=== PATIENT | male | born 1935 | race Caucasian/White ===

== ENCOUNTER → 2019-12-29 14:16 | Outpatient (CLI) | payer MEDICARE, OTHER, SELFPAY ==
--- NOTE | 2019-12-29 | DI.RAD.S_ITS ---
PROCEDURE: XR CHEST 2V INDICATIONS: COUGH TECHNIQUE: 2 views of the chest were acquired. COMPARISON: None. FINDINGS: Surgical changes and devices: Cardiac pacemaking device and dual chamber leads normal Lungs and pleura: Lungs are clear. No pleural effusions or pneumothorax. Mediastinum: Mediastinal contours are normal. Heart size is normal. Bones and chest wall: No suspicious bony abnormalities. Soft tissues appear unremarkable. IMPRESSION: Pacemaker in place, dual-chamber leads normal. No source of cough is found. Dictated by: Russel Mendes M.D. on 12/29/2019 at 15:08 Approved by: Russel Mendes M.D. on 12/29/2019 at 15:09
== END ==
PROVIDERS: PCP Internal Medicine; Referring Provider Internal Medicine; Visit Provider Internal Medicine
DX: R05 Cough (principal); Z95.0 Presence of cardiac pacemaker
CPT/HCPCS: 71046

== ENCOUNTER 2020-06-14 10:54 | Outpatient (RCR) | payer MEDICARE, OTHER, SELFPAY ==
--- NOTE | 2020-06-14 13:59 | PT.OIE ---
Current Diagnoses Impacted cerumen, left ear (06/14/20) Other abnormal auditory perceptions, right ear (06/14/20) Dizziness and giddiness (06/14/20) Visit Care Team Role Provider Type Mejia Mejía MD Primary Care Provider Non-Staff Specialty: Internal Medicine Address: [address] [place], [address] Email: Dedrick Fernandez MD Attending Provider Physician Referring Provider Specialty: Ear, Nose, Throat Address: [address] [place] [address], [address] Email: [email or web address] Physical Therapy Initial Evaluation PT-OP-A Visit Information Start: 06/14/20 13:47 Freq: Status: Active Protocol: Document 06/14/20 11:15 DCW (Rec: 06/14/20 13:58 DCW [id number]) Out-Patient Physical Therapy Visit Information Visit Information Visit Type Initial Evaluation Visit Start Time 11:15 Visit Stop Time 11:50 Total Visit Minutes 35 Visit Number 1 Number of PHYSICIAN SPECIALIST Visits 0 Evaluation Information Evaluation Date 06/14/20 PT-OP-B Current Condition Start: 06/14/20 13:47 Freq: Status: Active Protocol: Document 06/14/20 11:15 DCW (Rec: 06/14/20 13:58 DCW [id number]) Current Condition History of Current Condition Onset Date ~1 year Current Complaints Imbalance History of Current Condition Pt is an 84 year old male with a one year history of imbalance. Pt has noticed some increased difficulty when stepping from the dock onto his small fishing boat. Pt overall feels he is doing well , and just happened to mention to his ENT that he noticed some decreased balance, so he was referred to skilled PT for a vestibular/balance assessment. PT-OP-C Subjective Start: 06/14/20 13:47 Freq: Status: Active Protocol: Document 06/14/20 11:15 DCW (Rec: 06/14/20 13:58 DCW [id number]) OP-PT Subjective Patient Comments Patient Comments I think I'm doing pretty well overall. Patient Questionnaires Dizziness Handicap Inventory DHI Score 18% DHI Functional Impairment 1 to 19% Impaired (Score 1-19) PT-OP-D Balance Start: 06/14/20 13:47 Freq: Status: Active Protocol: Document 06/14/20 11:15 DCW (Rec: 06/14/20 13:58 DCW [id number]) OP-PT Balance Assessment Sitting Balance Static Sitting Balance Ability Normal Dynamic Sitting Balance Ability Normal Standing Balance Static Standing Balance Ability Normal Dynamic Standing Balance Ability Normal Balance Tests Rincon Balance Test Rincon Balance Test Score 50/56 Rincon Impairment Rating 1 to 19% Impaired (Score 45-55 ) Rincon Balance Assessment Evaluation Sitting to Standing Ability Independent w/out Hands Unsupported Stance Safely- 2 minutes Sitting Unsupported, Feet on Floor Safely- 2 minutes Standing to Sitting Ability Safely, Minimal Hand Use Transfer Ability Safely, Minimal Hand Use Unsupported Stance- Eyes Closed Safely, 10 seconds Unsupported Stance- Eyes Open Independent, 1 minute Reaching Forward Standing Safely, 5 inches Pick- Up Object From Floor Independent/Safe Look Behind Shoulder - Standing Turns Sideways Only Turning 360 Degrees Turns Bilateral, < 4 secs Unsupported Stance, Alternating Feet on (I)- 8 Steps in 20 secs Stair Unsupported Tandem Stance Holds Tandem- 30 seconds Unilateral Leg Stance Lifts Leg/Holds > 3 secs Total Score Rincon Total Score (out of 56 points) 50 Rincon Impairment Rating 1 to 19% Impaired (Score 45-55 ) Wolf Fall Scale Copyright Permission PT-OP-E Functional Tests Start: 06/14/20 13:47 Freq: Status: Active Protocol: Document 06/14/20 11:15 DCW (Rec: 06/14/20 13:58 DCW [id number]) Functional Tests Dynamic Gait Index (DGI) Score 2324 Functional Gait Assessment Score 27/30 PT-OP-M Strength Start: 06/14/20 13:58 Freq: Status: Active Protocol: Document 06/14/20 11:15 DCW (Rec: 06/14/20 13:59 DCW [id number]) Hip Strength Hip Manual Muscle Testing Bilateral Flexion (L2) 4+ Good+ Abduction 5 Normal Adduction 4+ Good+ Knee Strength Knee Manual Muscle Testing Bilateral Flexion (S2) 4+ Good+ Extension (L3) 4+ Good+ Ankle/Foot Strength Ankle and Foot Manual Muscle Testing Bilateral Dorsiflexion (L4) 4+ Good+ Plantarflexion (S1) 4+ Good+ PT-OP-O Vestibular Start: 06/14/20 13:47 Freq: Status: Active Protocol: Document 06/14/20 11:15 DCW (Rec: 06/14/20 13:58 [facility] [id number]) Vestibular Assessment Screening Tests Vestibular Artery Screen Negative Sharp-Kirstin Test Negative Visual Testing Heave Test Positive Bilateral Thrust Head Positive Bilateral PT-OP-T Assessment and Plan Start: 06/14/20 13:47 Freq: Status: Active Protocol: Document 06/14/20 11:15 DCW (Rec: 06/14/20 13:58 [facility] [id number]) Physical Therapy Assessment Evaluation Complexity Number of Personal Factors/Comorbidities 0 Number of Body Systems Impaired 1-2 Clinical Presentation at Evaluation Stable Assessment Summary Assessment Pt doing very well overall. Scores of 50/56 on his Rincon, 23/24 on the DGI, and 27/30 on the FGA are all suggestive of a low falls risk. Pt's FGA, in particular, is 6 points higher than the average score of 20.7 for his age group. 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 Pt leg strength also very good at this time. Pt does not have any real evidence of areas of concern, and would likely not benefit from continued skilled therapy. Pt will be discharged at this time. Physical Therapy Plan Frequency and Duration Frequency of Treatment 1x/Week Duration of Treatment 1 day Plan of Care Start Date 06/14/20 Plan of Care End Date 06/15/20 Next Visit Focus/Plan Next Note Type Discharge Summary
--- NOTE | 2020-06-14 14:00 | PT.OPPOC ---
Physical, Occupational & Speech Therapy At [facility] Current Diagnoses Impacted cerumen, left ear (06/14/20) Other abnormal auditory perceptions, right ear (06/14/20) Dizziness and giddiness (06/14/20) Visit Care Team Role Provider Type Mejia Mejía MD Primary Care Provider Non-Staff Specialty: Internal Medicine Address: [address] [place], [address] Email: Dedrick Fernandez MD Attending Provider Physician Referring Provider Specialty: Ear, Nose, Throat Address: [address] [place] [address], [address] Email: [email or web address] Plan Of Care PT-OP-T Assessment and Plan Start: 06/14/20 13:47 Freq: Status: Active Protocol: Document 06/14/20 11:15 DCW (Rec: 06/14/20 13:58 DCW [id number]) Physical Therapy Assessment Evaluation Complexity Number of Personal Factors/Comorbidities 0 Number of Body Systems Impaired 1-2 Clinical Presentation at Evaluation Stable Assessment Summary Assessment Pt doing very well overall. Scores of 50/56 on his Rincon, 23/24 on the DGI, and 27/30 on the FGA are all suggestive of a low falls risk. Pt's FGA, in particular, is 6 points higher than the average score of 20.7 for his age group. 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 Pt leg strength also very good at this time. Pt does not have any real evidence of areas of concern, and would likely not benefit from continued skilled therapy. Pt will be discharged at this time. Physical Therapy Plan Frequency and Duration Frequency of Treatment 1x/Week Duration of Treatment 1 day Plan of Care Start Date 06/14/20 Plan of Care End Date 06/15/20 Next Visit Focus/Plan Next Note Type Discharge Summary Plan of Care Dates Plan of Care Start Date 06/14/20 Plan of Care End Date 06/15/20 Electronically Signed by: Juan Carlos Isaacs, PT 06/14/20 1400 Please Sign and Return: I have reviewed this Plan of Care and certify that the skilled therapy services above are required to meet the patient?s needs. Physician Signature Date Printed Name and Credentials Clinical Instructor Signature Printed Name and Credentials
== END 2020-06-30 14:37 | disposition home or self-care (01) ==
LOC: PHYS 10:54
PROVIDERS: PCP Internal Medicine; Referring Provider Otolaryngology; Visit Provider Otolaryngology
DX: H93.291 Other abnormal auditory perceptions, right ear (principal); H61.22 Impacted cerumen, left ear; R42 Dizziness and giddiness
CPT/HCPCS: 97161

== ENCOUNTER → 2020-09-18 10:25 | Outpatient (CLI) | payer MEDICARE, OTHER, SELFPAY ==
[2020-09-18 11:21] LABS: COVID19 -Nasal RAPID Negative (Negative)
== END ==
PROVIDERS: PCP Internal Medicine; Visit Provider Physician Assistant
DX: Z01.812 Encounter for preprocedural laboratory examination (principal); Z20.822 Contact with and (suspected) exposure to COVID-19
CPT/HCPCS: 87635; C9803

== ENCOUNTER 2020-09-20 11:52 | Day surgery (SDC) | payer MEDICARE, OTHER, SELFPAY ==
[2020-09-20] VITALS (8 sets, daily range): BP systolic 110–147; BP diastolic 67–88; PULSE 54–77; RESP 11–16; TEMP 36.3–36.8; O2SAT 93–98; BMI 25.8
--- NOTE | 2020-09-20 | PATH_ITS ---
[facility] Accession Number: [id number] . 01 Material submitted: . colon - DESCENDING COLON POLYP . 02 Diagnosis: Descending Colon Polyp: Tubular adenoma. MRV 09/26/2020 1316 Local . 02 Electronically signed: . Brynn Singh MD, Pathologist NPI- [id number] . 01 Gross description: . DESCENDING COLON POLYP: Received in formalin is 1 fragment(s) of streeter, soft tissue measuring 0.3 x 0.2 x 0.2 cm submitted entirely in 1 cassette(s) /MARILUZ 09/21/2020 1920 Local . 02 Pathologist provided ICD-10: R10.33, K62.5, K63.5, K59.01 . 02 CPT . 617703 Performed at: 01 [facility] [address] [id number] MD Johnie Brannon MD Phone: [phone] Performed at: 02 [facility] [place] [address] [place], [place] [id number] MD Angie Maldonado MD Phone: [phone]
--- NOTE | 2020-09-20 11:08 | PM.HP.1 ---
History of Present Illness History of Present Illness Date Patient Seen: 09/20/20 Chief complaint: DX COLONOSCOPY Narrative: 84-year-old male seen at our office on 08/02/2020 due to constipation, abdominal pain, and rectal bleeding who is here for further evaluation by means of colonoscopy Patient History Medical History (Updated 09/11/20 @ 10:03 by Ahmet Gomez MD) Arthritis GERD (gastroesophageal reflux disease) History of malignant neoplasm of prostate History of migraine headaches Hypertension Lower urinary tract symptoms (LUTS) Pacemaker Prostate cancer Surgical History History of hernia repair History of prostate biopsy History of prostatectomy History of transurethral resection of prostate Status post implantation of artificial urinary sphincter Meds Home Medications and Allergies Home Medications Medication Instructions Recorded Confirmed Type amlodipine 5 mg tablet 5 mg PO DAILY 09/08/20 History butterbur root extract 75 mg mg PO 09/08/20 History capsule losartan 50 mg tablet 50 mg PO DAILY 09/08/20 History omeprazole 20 mg capsule,delayed 20 mg PO DAILY 09/08/20 History release pravastatin 40 mg tablet 40 mg PO DAILY 09/08/20 History propranolol 80 mg capsule,24 80 mg PO DAILY 09/08/20 History hr,extended release topiramate 25 mg tablet 25 mg PO DAILY 09/08/20 History zolmitriptan 5 mg tablet See Rx Instructions PO .COMPLEX 09/08/20 History Allergies Allergy/AdvReac Type Severity Reaction Status Date / Time codeine Allergy Verified 09/20/20 12:15 Exam Narrative Exam Narrative: General: Patient is well developed, not in apparent distress Cardiovascular: Regular rate and rhythm, no murmurs, rubs, or gallops; no evidence of edema; no palpable abdominal aortic aneurysm Gastrointestinal: Normoactive bowel sounds, soft, nontender, nondistended, no rebound tenderness, no hepatosplenomegaly, no evidence of hernia Assessment & Plan Assessment & Plan narrative: 84-year-old male here for further evaluation of constipation, rectal bleeding, and abdominal pain findings of colonoscopy Regarding the procedure(s), the risks and potential complications, benefits, and alternatives (including not doing the procedure) were discussed with the patient. The risks include but are not limited to bleeding, splenic injury, infection, perforation which may require surgical intervention, missed lesions, and adverse reactions to sedative medicines. After a question and answer period, the patient agreed to proceed with the procedure(s) and gives informed consent.
[2020-09-20] MEDS: SODIUM CHLORIDE 0.9% 1,000 ML 70 ML IV (12:51)
--- NOTE | 2020-09-20 12:56 | PM.OP.ENDO ---
Operative Date/Time/Diagnoses Date of procedure: 09/20/20 Procedure Notes Procedure in detail: Surgeon: Oleg Marcos MD Procedure: Colonoscopy with polypectomy Preoperative diagnosis: Constipation and rectal bleeding Postoperative diagnosis: Descending colon polyp status post polypectomy, severe diverticulosis descending and sigmoid colon with resultant decreased luminal diameter and mobility in the sigmoid colon; grade 1 internal hemorrhoids Medications: Conscious sedation using 5 mg IV of Midazolam and 100 mcg IV of Fentanyl Preanesthesia Assessment An H and P was performed/updated and the Px?s ASA class is 2. The procedure was discussed in detail with the patient. The potential risks and complications including infection, bleeding, missed lesions, perforation, need for surgery in case of perforation, prolonged hospital stay, and were explained. A brief question and answer period was allotted and once all questions were answered, informed consent was obtained. The patient was brought back to the procedure room and placed on standard monitoring. The patient?s vital signs were monitored continuously throughout the entire procedure. Prior to starting, a timeout was performed to confirm the patient?s identity, allergies, medications, and procedure. Procedure in detail The patient was placed in left lateral decubitus position and once adequate sedation was obtained a ROSEANNA was performed. The digital rectal examination did not reveal any palpable lesions. The tip of the colonoscope was placed in the anal canal and advanced without difficulty all the way to the cecum which was identified by the appendiceal orifice and the ileocecal valve. Careful examination of all pfeiffer of the colon was performed with irrigation of any residual stool. In the descending colon, there was note of a 2 mm sessile polyp which was removed by means of cold Jumbo forceps. Resection retrieval was complete with minimal bleeding In the descending colon and sigmoid colon there was note of multiple medium-sized diverticula. Due to the severe diverticulosis there were areas of the sigmoid colon that appeared to be fixed and decreased in luminal diameter. Retroflexion performed in the rectum revealed grade 1 internal hemorrhoids The patient tolerated the procedure well and will be brought back to the recovery area to be discharged once criteria are met. The prep was judged to be good and adequate to identify polyps less than 5 mm. The withdrawal time was 10 minutes. The total physician intraservice time was 17 minutes. Complications There were no complications and estimated blood loss was minimal. Recommendations: High-fiber diet Continue outPx medications Follow up pathology results No further surveillance colonoscopy recommended given patient's age Follow-up at our office ([facility]) with Dr. Lopez. Please call our office if you do not hear back from a washing machine installer in the next 1 week An emergency contact number was given to the patient for any complications related to the procedure
[2020-09-20] MEDS: MIDAZOLAM 5 MG/5 ML VIAL IV (13:07)
[2020-09-20] MEDS: fentaNYL 250 MCG/5 ML INJ IV (13:12)
--- NOTE | 2020-09-20 14:38 | SUR.PHASEII ---
Pt now ready to go, called, pt dressed, belly remained soft, no nausea, pt left in stable condition. informed of d/c instructions at car.
== END 2020-09-20 14:39 | disposition home or self-care (01) ==
PROVIDERS: PCP Internal Medicine; Referring Provider Internal Medicine; Visit Provider Internal Medicine Gastroenterology
PROC: 0DJD8ZZ Inspection of Lower Intestinal Tract, Via Natural or Artificial Opening Endoscopic (ICD-10-PCS; CPT 45378; principal; 2020-09-20 13:00)
DX: K62.5 Hemorrhage of anus and rectum (principal); K59.01 Slow transit constipation; Z95.0 Presence of cardiac pacemaker; I10 Essential (primary) hypertension; K21.9 Gastro-esophageal reflux disease without esophagitis; K57.30 Diverticulosis of large intestine without perforation or abscess without bleeding; K64.0 First degree hemorrhoids; D12.4 Benign neoplasm of descending colon
CPT/HCPCS: 45380; J2250; J3010

== ENCOUNTER → 2020-11-16 14:26 | Outpatient (CLI) | payer MEDICARE, OTHER, SELFPAY ==
[2020-11-16 16:34] LABS: BUN Creatinine Ratio 15.7 (6-22); Blood Urea Nitrogen 18 mg/dL (9-20); Calcium 9.5 mg/dL (8.4-10.2); Carbon Dioxide 23 mmol/L (22-32); Chloride 109 mmol/L (98-107); Estimated Glomerular Filt Rate > 60.0 mL/min (>60); Glucose 90 mg/dL (80-110); HEMOLYSIS < 15 (0-50); Potassium 4.5 mmol/L (3.4-5.1); Sodium 142 mmol/L (137-145)
== END ==
PROVIDERS: PCP Internal Medicine; Referring Provider Specialist; Visit Provider Specialist
DX: C61 Malignant neoplasm of prostate (principal)
CPT/HCPCS: 36415; 80048

== ENCOUNTER → 2020-11-24 12:29 | Outpatient (CLI) | payer MEDICARE, OTHER, SELFPAY ==
--- NOTE | 2020-11-24 12:31 | DI.NM.S_ITS ---
PROCEDURE: NM BONE SCAN WHOLE BODY RADIOPHARMACEUTICAL: 20.4 mCi Tc-99m MDP IV. INDICATIONS: prostate cancer TECHNIQUE: Delayed whole-body scintigrams were obtained approximately 3-4 hours after intravenous injection of radiotracer. Anterior and posterior views were acquired from vertex to feet. Additional oblique views of the pelvis were obtained. COMPARISON: [facility], CT, CT CHEST ABD PEL W CON, 11/24/2020, 13:19. [facility], MR, MR LUMBAR SPINE WITHOUT CONTRAST, 11/06/2020, 13:21. FINDINGS: No lesions are identified in skull, sternum, clavicles, scapulae, ribs, bony pelvis, and visualized shafts of the long bones. There is low level increased uptake in cervical, thoracic and lumbar spine with distribution indistinguishable from degenerative disc and facet disease; early metastasis to spine could be obscured by degenerative changes. There are foci of increased periarticular activity involving shoulders, sternoclavicular joints, hands, hips, SI joints, knees, ankles and feet, compatible with degenerative/arthritic changes. IMPRESSION: No definitive scintigraphic findings for osseous metastasis. Dictated by: Jessica Hogan M.D. on 11/27/2020 at 11:55 Approved by: Jessica Hogan M.D. on 11/27/2020 at 13:51
--- NOTE | 2020-11-24 12:35 | DI.CT.S_ITS ---
PROCEDURE: CT CHEST ABD PEL W CON INDICATIONS: prostate cancer TECHNIQUE: After the administration of oral and intravenous contrast, 5 mm thick sections acquired from the lung apices to the symphysis. 5 mm coronal and sagittal reformats were performed, with additional 7 mm coronal MIP reformats through the lungs. For radiation dose reduction, the following was used: automated exposure control, adjustment of mA and/or kV according to patient size. COMPARISON: [facility], MR, MR LUMBAR SPINE WITHOUT CONTRAST, 11/06/2020, 13:21. FINDINGS: Image quality: Excellent. CHEST: Lungs and pleura: No acute airspace opacities. No pleural effusions or pneumothorax. Central and peripheral airways appear patent and normal in caliber. Mediastinum: Heart size is normal. No pericardial effusion. No mediastinal or hilar adenopathy by size criteria. Thoracic aorta and central pulmonary arteries are normal in size. Esophagus is normal in caliber. No hiatal hernia. Cardiac pacemaking device with dual chamber leads in normal position. Chest wall: No axillary or supraclavicular adenopathy by size criteria. Thyroid gland appears normal where well seen.. ABDOMEN: Solid organs: Liver is normal in size and enhancement. Gallbladder appears previously resected . Biliary system is non dilated. Pancreas enhances normally. Spleen is normal in size and enhancement. No adrenal nodules. Kidneys demonstrate normal size and enhancement, without hydronephrosis. Peritoneum and bowel: Bowel loops demonstrate normal wall thickness and caliber. No free fluid or air. Nodes and vessels: No retroperitoneal or mesenteric adenopathy by size criteria. Aorta and inferior vena cava are normal in size. Miscellaneous: No ventral hernias. PELVIS: Genitourinary: Bladder wall thickness is normal. There is a penile implant partially visualized, with a control device located just to the right of midline at the a posterior border of the mid pelvic body wall. Miscellaneous: No inguinal hernias or adenopathy. At the same axial level as the control device anteriorly note is made at the left posterior pelvis of a solid mass infiltrating along the borders of the left internal iliac node chain, measuring up to 3.8 x 4.4 by 3.7 cm in maximal transverse, AP and craniocaudad dimensions. This is best seen centered on series 2, image 109. More inferiorly postsurgical changes of apparent prior prostatectomy and lymph node excision is noted. No bladder abnormality is seen. Bones: No suspicious bony lesions. No vertebral body compression fractures. IMPRESSION: 1. 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 2. Postsurgical changes of prostatectomy and adjacent low pelvic midline lymph node excision. No mass in this operative bed or elsewhere is seen in addition to the left-sided posterior abnormality discussed above. 3. Throughout the visualized skeletal structures no osteoblastic or lytic bone lesion is found. Pacemaking device, prior cholecystectomy, no distant metastatic disease is seen. Dictated by: Russel Mendes M.D. on 11/24/2020 at 16:08 Approved by: Russel Mendes M.D. on 11/24/2020 at 16:29
== END ==
PROVIDERS: PCP Internal Medicine; Referring Provider Specialist; Visit Provider Specialist
DX: C61 Malignant neoplasm of prostate (principal); I77.89 Other specified disorders of arteries and arterioles
CPT/HCPCS: 71260; 74177; 78306; A9503; Q9967

== ENCOUNTER → 2020-12-13 12:22 | Outpatient (CLI) | payer MEDICARE, OTHER, SELFPAY | PROVIDERS: PCP Internal Medicine; Referring Provider Specialist; Visit Provider Specialist | DX: C61 Malignant neoplasm of prostate (principal); M85.852 Other specified disorders of bone density and structure, left thigh; Z79.818 Long term (current) use of other agents affecting estrogen receptors and estrogen levels; Z79.899 Other long term (current) drug therapy; Z87.891 Personal history of nicotine dependence | CPT/HCPCS: 77080; 96372; 96402; J0897; J9217 ==

== ENCOUNTER → 2020-12-20 09:39 | Outpatient (CLI) | payer MEDICARE, OTHER, SELFPAY ==
[2020-12-20 10:54] LABS: Appearance Urine UA CLOUDY; Bilirubin Urine UA NEGATIVE (NEGATIVE); Color Urine UA YELLOW; Glucose Urine UA NEGATIVE (Negative); Ketones Urine UA TRACE (NEGATIVE); Leukocyte Esterase Urine UA 2+ (NEGATIVE); Nitrite Urine UA POSITIVE (Negative); Occult Blood Urine UA 3+ (Negative); Protein Urine UA 1+ (Negative); Specific Gravity Urine UA 1.025 (1.000-1.035)
[2020-12-20 11:22] LABS: Bacteria Urine Many (>30); Culture Indicated Urine Specimen Cultured; RBC Urine 10-30/HPF (0-5/HPF); Squamous Epithelial Cell Urine 0-1 /HPF (0-5/HPF); WBC Urine 30-100/HPF (0-5/HPF)
== END ==
PROVIDERS: PCP Internal Medicine; Referring Provider Specialist; Visit Provider Specialist
DX: N39.0 Urinary tract infection, site not specified (principal)
CPT/HCPCS: 81003; 81015; 87077; 87086; 87186

== ENCOUNTER → 2020-12-22 10:54 | Outpatient (CLI) | payer MEDICARE, OTHER, SELFPAY ==
[2020-12-22 12:24] LABS: COVID19 -Nasal RAPID Negative (Negative)
== END ==
PROVIDERS: PCP Internal Medicine; Visit Provider Specialist
DX: Z20.822 Contact with and (suspected) exposure to COVID-19 (principal)
CPT/HCPCS: 87635

== ENCOUNTER 2020-12-25 07:25 | Day surgery (SDC) | payer MEDICARE, OTHER, SELFPAY ==
[2020-12-19 08:05] VITALS: BMI 26.5
[2020-12-25] VITALS (14 sets, daily range): BP systolic 96–147; BP diastolic 63–86; PULSE 60–74; RESP 12–21; TEMP 36.1–37.7; O2SAT 92–97; BMI 26.5
[2020-12-25] MEDS: VANCOMYCIN 1,000 MG/200 ML PIGGYBACK 200 MG IV (07:45)
[2020-12-25] MEDS: LACTATED RINGERS 1,000 ML 42 ML IV ×2 (07:46→10:17)
--- NOTE | 2020-12-25 07:47 | PM.HP.1 ---
History of Present Illness History of Present Illness Date Patient Seen: 12/25/20 Time Patient Seen: 07:47 Chief complaint: EXPLANTATION OF ARTIFICIAL URINARY SPHINCTER Narrative: Fermín is an 85-year-old white male presenting today for scheduled explantation of artificial urinary sphincter. He is status post radical prostatectomy in August of 2004 for PS a of 7.3. Final pathology demonstrated GROUP 4, pT3a, N0, MX MEETING FACILITATOR (positive margin). He then underwent postoperative adjuvant external beam radiotherapy from January 2005 through March 2005 for total dose of 68.4 Gy. He developed delayed progressive urinary incontinence and underwent placement of an AUS in January of 2015. The then underwent explantation of the device on 02/23/2019 for cuff erosion. He then underwent AUS implantation via a trans corporal approach on 10/05/2019. He reports that within 6-8 months he began having difficulties operating his device. Lower tract endoscopy on 11/15/2020 revealed cuff erosion ventrally through the urethra. He is now on ciprofloxacin floor positive urine culture (E coli) and increasing pain. 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) GERD (gastroesophageal reflux disease) History of malignant neoplasm of prostate History of migraine headaches HLD (hyperlipidemia) Hypertension Lower urinary tract symptoms (LUTS) Pacemaker Prostate cancer Recurrent prostate cancer Surgical History (Updated 12/19/20 @ 08:15 by Ivy Sam RN) History of hernia repair History of prostate biopsy History of prostatectomy History of transurethral resection of prostate Hx of cystoscopy (11/15/20) Status post implantation of artificial urinary sphincter (01/2015) Status post implantation of artificial urinary sphincter (10/05/19) Family & Social History Social History: household members spouse Tobacco & Substance use: Smoking Status Former smoker alcohol intake current alcohol intake frequency holiday/special occasion Substance Use Type does not use Meds Home Medications and Allergies Home Medications Medication Instructions Recorded Confirmed Type amlodipine 5 mg tablet 5 mg PO DAILY 09/08/20 12/25/20 History butterbur root extract 75 mg 75 mg PO DAILY 09/08/20 12/25/20 History capsule losartan 50 mg tablet 50 mg PO DAILY 09/08/20 12/25/20 History omeprazole 20 mg capsule,delayed 20 mg PO DAILY 09/08/20 12/25/20 History release pravastatin 40 mg tablet 40 mg PO DAILY 09/08/20 12/25/20 History propranolol 80 mg capsule,24 80 mg PO DAILY 09/08/20 12/25/20 History hr,extended release topiramate 25 mg tablet 25 mg PO DAILY 09/08/20 12/25/20 History zolmitriptan 5 mg tablet See Rx Instructions PO .COMPLEX PRN 09/08/20 12/19/20 History bicalutamide 50 mg tablet 50 mg PO DAILY #15 tab 12/04/20 12/25/20 Rx ciprofloxacin HCl 250 mg tablet 250 mg PO BID #20 tab 12/21/20 12/25/20 Rx nitrofurantoin macrocrystal 100 mg 100 mg PO BEDTIME #30 cap 12/21/20 12/25/20 Rx capsule Allergies Allergy/AdvReac Type Severity Reaction Status Date / Time codeine Allergy Mild Itchy Verified 12/25/20 07:39 Review of Systems Review of Systems ROS: Yes All systems reviewed with the patient and are negative except as otherwise documented Exam Vital Signs (past 8 hours): He is a well-developed and well-nourished elderly white male in no current distress. Head/neck-sclera clear and pupils are equal and round bilaterally. Chest-clear, equal, and unlabored expansion bilaterally. Heart-regular rhythm in regular rate. No abnormal out tones appreciated. Abdomen-bowel tones are normal and active. Incisions are well-healed without visual or palpable hernia. No erythema or tenderness. External genitalia-normal appearing external structures. The pump is palpable within the scrotum and is mildly tender. No fluctuance. Assessment & Plan Assessment and plan (1) Cuff erosion of artificial urinary sphincter: Problem details: Explantation Qualifiers: Encounter type: initial encounter Qualified Code(s): T83.111A - Breakdown (mechanical) of implanted urinary sphincter, initial encounter Status: Acute (2) Recurrent prostate cancer: Status: Acute Assessment & Plan narrative: Assessment: 1. Artificial urinary sphincter cuff erosion and 85-year-old male status post previous radical prostatectomy, external beam radiotherapy, and previous failure of an AUS. Plan: 1. EXPLANTATION OF AUS. Reviewed findings, and discussed impression and options at length in the outpatient setting. Explained rationale and indications for explantation. Also explained unlikely scenario that a 3rd attempt to of implanted device would be possible. He is except to the fact that he may use external appliances or indwelling Motley catheter with periodic changes remainder of his life. Explain the common side effects, possible complications, perioperative limitations/restrictions, and reasonable expectations of outcomes and recovery following explantation of eroded and infected artificial urinary sphincter. Specifically he understands that he will likely have lifelong need for external appliances and or indwelling Motley catheter.
[2020-12-25 07:51] LABS: Hematocrit 43.2 % (41-53); Hemoglobin 14.8 g/dL (13.5-17.5)
--- NOTE | 2020-12-25 07:55 | PM.PREOP ---
Pre-operative Note Interval Note History & Physical reviewed/Exam performed by Physician: Yes Changes to H&P: No
[2020-12-25 08:04] LABS: BUN Creatinine Ratio 18.1 (6-22); Blood Urea Nitrogen 21 mg/dL (9-20); Calcium 9.4 mg/dL (8.4-10.2); Carbon Dioxide 24 mmol/L (22-32); Chloride 107 mmol/L (98-107); Estimated Glomerular Filt Rate > 60.0 mL/min (>60); Glucose 106 mg/dL (80-110); HEMOLYSIS < 15 (0-50); Potassium 4.3 mmol/L (3.4-5.1); Sodium 141 mmol/L (137-145)
[2020-12-25] MEDS: ACETAMINOPHEN IV 1,000 MG/100 ML VIAL 400 MG IV (08:30)
[2020-12-25] MEDS: GENTAMICIN 160 MG in SODIUM CHLORIDE 0.9% 100 ML 104 ML IV (08:40)
--- NOTE | 2020-12-25 08:53 | SUR.OPER ---
Lithotomy on padded OR bed, head on pillow, arms secured on padded arm boards at <90 degrees abduction. Legs secured in padded yellow fins stirrups.
[2020-12-25] MEDS: VANCOMYCIN 1,000 MG VIAL 1000 MG TOP (09:03)
[2020-12-25] MEDS: BUPIVACAINE LIPOSOME 266 MG/20 ML VIAL INJ (09:03)
[2020-12-25] MEDS: BUPIVACAINE 0.5% W/ EPI (PF) 30 ML VIAL INJ (09:03)
[2020-12-25] MEDS: GENTAMICIN 80 MG in SODIUM CHLORIDE 0.9% 1,000 ML 12024 MG IRR (09:04)
[2020-12-25] MEDS: SODIUM CHLORIDE 0.9% 1,000 ML, GENTAMICIN 80 MG IRR (09:08)
[2020-12-25] MEDS: HYDROGEN PEROXIDE 473 ML SOLUTION 60 ML TOP (10:07)
--- NOTE | 2020-12-25 10:30 | P.OP_ITS ---
Operative Date/Time/Diagnoses Date of procedure: 12/25/20 Time of procedure: 10:30 Pre-op diagnosis: Cuff erosion of artificial urinary sphincter. Post-op diagnosis: same Procedure & Clinicians Procedure: 1. Explantation of artificial urinary sphincter. Same procedure as scheduled: Yes Indications: 1. Cuff erosion of artificial urinary sphincter. 2. UTI. Surgeon: Ahmet Gomez Click Yes if Unassisted: No Anesthesia Type: General and Local (1.33% Exparel) Operative Notes Findings: Small amount of slightly turbid fluid within the pseudo capsule of the cuff and pump. Closure Type: primary Specimen(s): other (Components of artificial urinary sphincter.) Applied: catheter (16. [place] Motley catheter.) Estimated Blood Loss (mL): 3 Blood products transfused: none Tourniquet time (min): 0 Procedure in detail: The patient was positioned in supine and administered general anesthesia. The lower abdomen, genitalia, groin, and perineum were prepped and draped in sterile fashion. A 16 [place] Motley catheter was inserted in the bladder and the contents drained. The catheter was then plugged for intraoperative urethral localization. Next a midline incision was made in the perineum/scrotal junction. Subcutaneous fat and Wendy's fascia were then divided with blunt and cautery technique. The cuff was palpated and dissection was carried out down directly to the cuff. The cuff was then released and removed from its position around the urethra. Search was then made through the same incision for the transfer pump is located palpably and again cautery and blunt technique realized to isolate the device and mobilized it free of its position in the left hemiscrotum. Next, the tubing of the devices were tract toward the right external ring. Skin overlying the right lower quadrant just above the internal ring was then infiltrated local anesthetic. A transverse incision was made in the subcutaneous fat and Wendy's fascia layer were divided with the cautery pen and blunt dissection. The connection tubing was identified and isolated and then tracked superiorly and laterally to the right to the rectus fascia. Further cautery and blunt dissection were then carried out to then deliver the reservoir bulb out from its intra-abdominal position. A running 2-0 PDS was then utilized to close the fascial layer. All components of the device were removed and sent to pathology for culture. The right suprapubic and the perineal wounds were then irrigated with copious volume of dilute Betadine, and then dilute hydrogen peroxide, then a solution of gentamicin and vancomycin. The right inguinal incisional was then closed in 2 layers using an inner layer of running 2-0 Vicryl and then a subcutaneous layer using 4-0 Monocryl. The skin surface was then cleaned and dried and S small piece of Telfa was tailored to the size incision and then covered with a transparent Op site dressing. The layers of the perineal and scrotal incision were then closed in 2 layers using 2-0 Monocryl. The skin was closed with a running subcutaneous technique of 4-0 Monocryl. Again, this skin was cleaned and dried, small piece of Telfa was tailored to the size incision and then bio occlusive Op site dressing was applied over the Telfa. The Motley catheter was left indwelling to gravity drainage. A operating room surgical technologist was indicated and necessary for retraction and hemostasis. The triage assistant also suture the abdominal incision well I closed the scrotal/perineal incision. The triage assistant also assisted with crucial retraction during removal of the entire artificial urinary sphincter and its components. Surgical assistance resulted in shortened operative time. The patient was then repositioned supine, was awakened, and transferred to [facility] in preparation for transportation to recovery. Complications: none Post-operative Condition: stable Disposition: PACU Plan for aftercare: Discharge home.
[2020-12-25] MEDS: OXYCODONE IR 5 MG TABLET PO ×2 (12:14→12:49)
--- NOTE | 2020-12-25 12:15 | SUR.PHASEII ---
reports pain 4-5 - pointed to right inguinal area. Preferred not to take a pill but explained to him that it is important not to let pain become to strong in order for optimal pain control. Crackers given prior to Rx
--- NOTE | 2020-12-25 13:27 | SUR.PHASEII ---
Denied dizziness, light-headedness prior to transfer. Stable on feet. Leg bag instructions given and demonstrated. Large bag left attached for patient convenience. Ice pack x2 given to take home. Pt voiced appreciation for care and kindness. Denies having any questions.
== END 2020-12-25 13:00 | disposition home or self-care (01) ==
PROVIDERS: PCP Internal Medicine; Referring Provider Internal Medicine; Visit Provider Specialist
PROC: (CPT 53446; principal; 2020-12-25 07:45)
DX: T83.111A Breakdown (mechanical) of implanted urinary sphincter, initial encounter (principal); C61 Malignant neoplasm of prostate; Z95.0 Presence of cardiac pacemaker; I10 Essential (primary) hypertension; G43.909 Migraine, unspecified, not intractable, without status migrainosus; K21.9 Gastro-esophageal reflux disease without esophagitis
CPT/HCPCS: 53446; 36415; 80048; 85014; 85018; 87070; 87075; 87077; 87186; 87205; C9290; J0131; J1100; J2405; J2704; J3010

== ENCOUNTER → 2021-01-26 08:36 | Outpatient (CLI) | payer MEDICARE, OTHER, SELFPAY ==
--- NOTE | 2021-01-26 08:38 | DI.RAD.S_ITS ---
PROCEDURE: FL VOIDING CYSTOURETHROGRAM INDICATIONS: bulbar urethral perforation TECHNIQUE: The bladder was filled with iodinated contrast by gravity pressure through a Motley catheter. Fluoroscopic filming was then performed of the bladder, ureteral and renal regions, and urethra during patient voiding. COMPARISON: None. FINDINGS: Template Cutter view: No suspicious abdominal calcifications. Bowel gas pattern is normal. Bladder: The bladder is normal in size and contour. No vesicoureteral reflux. No contrast extravasation. Urethra: Motley catheter tubing was present for filling the bladder lumen. After filling no reflux was seen and the patient was able to void voluntarily after removal of the Motley catheter during fluoroscopic visualization. There is a narrowing at the prosthetic urethra to approximately 2 mm, fixed during voiding, and no diverticulum or urethral irregularity was observed. The patient was able to completely empty the bladder lumen, with no visualized reflux during emptying.. The surrounding urethral lumen is normal in morphology. 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 No evidence of diverticulum, or urethral irregularity. Complete bladder emptying. No reflux seen. Dictated by: Russel Mendes M.D. on 01/26/2021 at 10:54 Approved by: Russel Mendes M.D. on 01/26/2021 at 10:57
== END ==
PROVIDERS: PCP Internal Medicine; Referring Provider Specialist; Visit Provider Specialist
DX: T83.111A Breakdown (mechanical) of implanted urinary sphincter, initial encounter (principal)
CPT/HCPCS: 74455

== ENCOUNTER 2021-01-29 13:10 | Emergency (ER) | payer MEDICARE, OTHER, SELFPAY ==
[2021-01-29 13:15] VITALS: BP 136/88; PULSE 85; RESP 20; TEMP 36.3; O2SAT 97
[2021-01-29] MEDS: LIDOCAINE 2% (GLYDO) 6 ML GEL TOP (13:32)
--- NOTE | 2021-01-29 18:24 | ED_ITS ---
HPI - General Adult General Chief complaint: Urogenital-Male Stated complaint: catheter problems Time Seen by Provider: 01/29/21 18:05 Source: patient Mode of arrival: Ambulatory Limitations: no limitations History of Present Illness HPI narrative: Patient is an 85-year-old male here for evaluation of discomfort around his Motley catheter. He has had issues with urination in the past. He states the end of last week he had a procedure that was done to further evaluate these issues and the catheter that he currently has was placed during that time with diagnostic imaging. He states he has had a urinary catheter in the past and this 1 seems to be more uncomfortable. He describes the pain in the shaft of his penis and also around the tip. It is draining like normal. He is not having any abdominal pain. Related Data Home Medications Medication Instructions Recorded Confirmed amlodipine 5 mg tablet 5 mg PO DAILY 09/08/20 01/03/21 butterbur root extract 75 mg 75 mg PO DAILY 09/08/20 01/03/21 capsule losartan 50 mg tablet 50 mg PO DAILY 09/08/20 01/03/21 omeprazole 20 mg capsule,delayed 20 mg PO DAILY 09/08/20 01/03/21 release pravastatin 40 mg tablet 40 mg PO DAILY 09/08/20 01/03/21 propranolol 80 mg capsule,24 80 mg PO DAILY 09/08/20 01/03/21 hr,extended release topiramate 25 mg tablet 25 mg PO DAILY 09/08/20 01/03/21 zolmitriptan 5 mg tablet See Rx Instructions PO .COMPLEX PRN 09/08/20 01/03/21 Previous Rx's Medication Instructions Recorded bicalutamide 50 mg tablet 50 mg PO DAILY #15 tab 12/04/20 oxycodone 5 mg PO Q4H PRN #20 tab 12/25/20 lidocaine 1 applic TOPICAL QID PRN #30 g 01/29/21 Allergies Allergy/AdvReac Type Severity Reaction Status Date / Time codeine Allergy Mild Itchy Verified 01/03/21 08:59 Review of Systems Constitutional Constitutional: Denies fever(s) Gastrointestinal Gastrointestinal: Denies abdominal pain Genitourinary Comments: Pain around the penis related to the Motley catheter Hematologic/Lymphatic On Anticoagulants: No Patient History Medical History Arthritis 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/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) GERD (gastroesophageal reflux disease) Hard of hearing History of malignant neoplasm of prostate History of migraine headaches HLD (hyperlipidemia) Hypertension Lower urinary tract symptoms (LUTS) Pacemaker Prostate cancer Recurrent prostate cancer Surgical History History of hernia repair History of prostate biopsy History of prostatectomy History of transurethral resection of prostate Hx of cystoscopy (11/15/20) Status post implantation of artificial urinary sphincter (01/2015) Status post implantation of artificial urinary sphincter (10/05/19) Social History marital status: household members: significant other occupational status: previously employed Smoking Status: Former smoker Tobacco: How many years used: 20 second hand exposure: Yes alcohol intake: current caffeine: Yes Smoking Status: Former smoker alcohol intake frequency: holidays/special occasions only Substance Use Type: does not use Exam Initial Vital Signs Initial Vital Signs: Vital Signs Temperature 97.4 F L 01/29/21 13:15 Pulse Rate 85 01/29/21 13:15 Respiratory Rate 20 01/29/21 13:15 Blood Pressure 136/88 01/29/21 13:15 Pulse Oximetry 97 01/29/21 13:15 Const General: cooperative and comfortable Limitations: mental status not altered HENMT Head: normal to inspection and normocephalic GI Inspection: non-distended Palpation: soft External: normal external exam, circumcised and no erythema Penis: normal penis Meatus: meatus normal Scrotum: scrotum normal Testes: normal Other: Motley catheter in place Skin Lesions: no lesions Rashes: no rashes Neuro General: patient alert and patient awake Speech: speech normal Extrem General: normal to inspection Psych Appearance: grossly normal and well kempt Course Orders Ordered: Discontinued Medications Lidocaine HCl (Lidocaine 2% (Glydo) 6 Ml Gel) 6 ml TOP NOW ONE Stop: 01/29/21 13:25 Last Admin: 01/29/21 13:32 Dose: 6 ml Documented by: DAWIT Vital Signs Vital signs: Vital Signs - 8 hr 01/29/21 18:47 Pulse Rate 77 Respiratory Rate 16 Blood Pressure 132/90 Pulse Oximetry 98 Medical Decision Making Lab Data Lab results reviewed: Yes I reviewed the patient's lab results. Labs: Urine Dip Bedside Urine Glucose Negative Bedside Urine Bilirubin - Negative Bedside Urine Ketone - Negative Urine Specific [place] 1.030 Bedside Urine Occult Blood +/- Bedside Urine pH 5.5 Bedside Urine Protein + 30 Bedside Urine Urobilinogen - Negative Bedside Urine Nitrite - Negative Bedside Urine Leukocytes - Negative Esterase Point of care testing: Urine Dip Bedside Urine Glucose Negative Bedside Urine Bilirubin - Negative Bedside Urine Ketone - Negative Urine Specific [place] 1.030 Bedside Urine Occult Blood +/- Bedside Urine pH 5.5 Bedside Urine Protein + 30 Bedside Urine Urobilinogen - Negative Bedside Urine Nitrite - Negative Bedside Urine Leukocytes - Negative Esterase MDM Narrative Medical decision making narrative: The Motley catheter is draining and does appear well. There isn't any signs of an infection. I am hesitant to removing catheter in place a new 1 because of the procedure that he had recently in the fact that this catheter was placed during that procedure and I would like to avoid potentially having an issue with replacing a new 1. Provided reassurance to the patient that things looked well. Will provide a prescription for lidocaine jelly as this may help the area. He already has follow-up scheduled with Urology. He was given return precautions. He expressed understanding and agreement. Discharge Plan Departure Patient Disposition: Home Clinical Impression: Complication of Motley catheter Instructions: How to Care for Your Motley Catheter -- Male Activity Restrictions/Additional Instructions: I recommend that you keep your appointment with Urology that is already s cheduled for later this week. A prescription for some lidocaine jelly was transmitted to [facility] in [place]. Return to the emergency department for any new or worsening symptoms Prescriptions: New lidocaine 5 % ointment 1 applic topical QID PRN (Reason: skin irritation) Qty: 30 RF: 0 No Action omeprazole 20 mg capsule,delayed release(DR/EC) 20 mg PO DAILY RF: 0 propranolol 80 mg capsule,extended release 24 hr 80 mg PO DAILY RF: 0 topiramate 25 mg tablet 25 mg PO DAILY RF: 0 amlodipine 5 mg tablet 5 mg PO DAILY RF: 0 losartan 50 mg tablet 50 mg PO DAILY RF: 0 butterbur root extract 75 mg capsule 75 mg PO DAILY RF: 0 zolmitriptan 5 mg tablet See Rx Instructions PO .COMPLEX PRN (Reason: Migraine Headache) RF: 0 pravastatin 40 mg tablet 40 mg PO DAILY RF: 0 bicalutamide 50 mg tablet 50 mg PO DAILY Qty: 15 RF: 0 oxycodone 5 mg tablet 5 mg PO Q4H PRN (Reason: pain) Qty: 20 RF: 0 Referrals: Mejia Mejía MD [Primary Care Provider] -
--- NOTE | 2021-01-29 18:25 | PC.NURSE ---
pt states he had a ellison cath for a month with no issues, then on friday it was changed, on fri he started having burning.
[2021-01-29 18:47] VITALS: BP 132/90; PULSE 77; RESP 16; O2SAT 98
== END 2021-01-29 18:47 | disposition home or self-care (01) ==
PROVIDERS: Emergency Provider Emergency Medicine; PCP Internal Medicine
DX: T83.9XXA Unspecified complication of genitourinary prosthetic device, implant and graft, initial encounter (principal)
CPT/HCPCS: 81003; 99282

== ENCOUNTER → 2021-01-31 14:07 | Outpatient (CLI) | payer MEDICARE, OTHER, SELFPAY | PROVIDERS: PCP Internal Medicine; Visit Provider Specialist | DX: C61 Malignant neoplasm of prostate (principal); R39.9 Unspecified symptoms and signs involving the genitourinary system; T83.9XXA Unspecified complication of genitourinary prosthetic device, implant and graft, initial encounter | CPT/HCPCS: 87077; 87086 ==

== ENCOUNTER → 2021-02-26 10:49 | Outpatient (CLI) | payer MEDICARE, OTHER, SELFPAY | PROVIDERS: PCP Internal Medicine; Visit Provider Specialist | DX: N39.0 Urinary tract infection, site not specified (principal) | CPT/HCPCS: 87077; 87086; 87147; 87186 ==

== ENCOUNTER → 2021-03-28 14:09 | Outpatient (CLI) | payer MEDICARE, OTHER, SELFPAY | PROVIDERS: PCP Internal Medicine; Referring Provider Specialist; Visit Provider Specialist | DX: R39.9 Unspecified symptoms and signs involving the genitourinary system (principal); T83.111A Breakdown (mechanical) of implanted urinary sphincter, initial encounter; Z85.46 Personal history of malignant neoplasm of prostate | CPT/HCPCS: 51702; 87077; 87086; 87186 ==

== ENCOUNTER → 2021-04-11 14:07 | Outpatient (CLI) | payer MEDICARE, OTHER, SELFPAY ==
[2021-04-11 17:33] LABS: Appearance Urine UA CLOUDY; Bilirubin Urine UA NEGATIVE (NEGATIVE); Color Urine UA YELLOW; Glucose Urine UA NEGATIVE (Negative); Ketones Urine UA NEGATIVE (NEGATIVE); Leukocyte Esterase Urine UA 2+ (NEGATIVE); Nitrite Urine UA NEGATIVE (Negative); Occult Blood Urine UA 3+ (Negative); Protein Urine UA 2+ (Negative); Urobilinogen Urine UA 0.2 E.U./dL (0.2)
[2021-04-11 18:21] LABS: Bacteria Urine Many (>30); Culture Indicated Urine Specimen Cultured; RBC Urine 10-30/HPF (0-5/HPF); WBC Urine >100/HPF (0-5/HPF)
== END ==
PROVIDERS: PCP Internal Medicine; Referring Provider Specialist; Visit Provider Specialist
DX: Z13.9 Encounter for screening, unspecified (principal)
CPT/HCPCS: 81001; 87077; 87086; 87186

== ENCOUNTER → 2021-04-13 10:26 | Outpatient (CLI) | payer MEDICARE, OTHER, SELFPAY ==
[2021-04-13 10:33] LABS: Appearance Urine UA CLOUDY; Bilirubin Urine UA NEGATIVE (NEGATIVE); Color Urine UA YELLOW; Glucose Urine UA NEGATIVE (Negative); Ketones Urine UA NEGATIVE (NEGATIVE); Leukocyte Esterase Urine UA 2+ (NEGATIVE); Nitrite Urine UA POSITIVE (Negative); Occult Blood Urine UA 3+ (Negative); Protein Urine UA 2+ (Negative); Urobilinogen Urine UA 0.2 E.U./dL (0.2); pH Urine UA 5.5 (4.5-8.0)
[2021-04-13 10:41] LABS: Amorphous Sediment Urine 2+; Bacteria Urine Many (>30); Culture Indicated Urine Specimen Cultured; RBC Urine 10-30/HPF (0-5/HPF); Squamous Epithelial Cell Urine 1-5 /HPF (0-5/HPF); WBC Urine >100/HPF (0-5/HPF)
== END ==
PROVIDERS: PCP Internal Medicine; Visit Provider Specialist
DX: R30.0 Dysuria (principal); Z46.6 Encounter for fitting and adjustment of urinary device
CPT/HCPCS: 51702; 81001; 87077; 87086; 87186

== ENCOUNTER → 2021-04-14 11:11 | Outpatient (CLI) | payer MEDICARE, OTHER, SELFPAY ==
[2021-04-14 12:31] LABS: BUN Creatinine Ratio 21.5 (6-22); Blood Urea Nitrogen 20 mg/dL (9-20); Calcium 9.7 mg/dL (8.4-10.2); Carbon Dioxide 21 mmol/L (22-32); Chloride 111 mmol/L (98-107); Estimated Glomerular Filt Rate > 60.0 mL/min (>60); Glucose 88 mg/dL (80-110); HEMOLYSIS < 15 (0-50); Potassium 4.3 mmol/L (3.4-5.1); Sodium 141 mmol/L (137-145)
[2021-04-14 13:18] LABS: Prostate Specific Antigen < 0.064 ng/mL (0.10-4.00)
== END ==
PROVIDERS: PCP Internal Medicine; Referring Provider Specialist; Visit Provider Specialist
DX: Z01.812 Encounter for preprocedural laboratory examination (principal); R97.20 Elevated prostate specific antigen [PSA]
CPT/HCPCS: 36415; 80048; 84153

== ENCOUNTER → 2021-05-02 12:00 | Outpatient (CLI) | payer MEDICARE, OTHER, SELFPAY | PROVIDERS: PCP Internal Medicine; Visit Provider Specialist | DX: R30.0 Dysuria (principal) | CPT/HCPCS: 51702; 87086 ==

== ENCOUNTER → 2021-05-16 09:25 | Outpatient (CLI) | payer MEDICARE, OTHER, SELFPAY | PROVIDERS: PCP Internal Medicine; Visit Provider Specialist | DX: R39.9 Unspecified symptoms and signs involving the genitourinary system (principal) | CPT/HCPCS: 87077; 87086; 87186 ==

== ENCOUNTER → 2021-06-06 15:11 | Outpatient (CLI) | payer MEDICARE, OTHER, SELFPAY | PROVIDERS: PCP Internal Medicine; Referring Provider Specialist; Visit Provider Specialist | DX: R30.0 Dysuria (principal) | CPT/HCPCS: 87086 ==

== ENCOUNTER → 2021-07-04 15:11 | Outpatient (CLI) | payer MEDICARE, OTHER, SELFPAY | PROVIDERS: PCP Internal Medicine; Visit Provider Specialist | DX: R30.0 Dysuria (principal); R39.9 Unspecified symptoms and signs involving the genitourinary system | CPT/HCPCS: 51702; 87086 ==

== ENCOUNTER → 2021-08-02 13:44 | Outpatient (CLI) | payer MEDICARE, OTHER, SELFPAY | PROVIDERS: PCP Internal Medicine; Visit Provider Specialist | DX: R30.0 Dysuria (principal); R33.9 Retention of urine, unspecified | CPT/HCPCS: 51702; 87077; 87086; 87186 ==

== ENCOUNTER → 2021-12-07 15:08 | Outpatient (CLI) | payer MEDICARE, OTHER, SELFPAY | PROVIDERS: PCP Internal Medicine; Referring Provider Specialist; Visit Provider Specialist | DX: C61 Malignant neoplasm of prostate (principal); Z13.820 Encounter for screening for osteoporosis; M85.852 Other specified disorders of bone density and structure, left thigh; F17.200 Nicotine dependence, unspecified, uncomplicated | CPT/HCPCS: 77080 ==

== ENCOUNTER → 2022-02-12 08:47 | Outpatient (CLI) | payer MEDICARE, OTHER, SELFPAY ==
--- NOTE | 2022-02-12 | DI.US.S_ITS ---
PROCEDURE: US ABDOMEN COMPLETE INDICATIONS: ABDOMINAL PAIN TECHNIQUE: Real-time scanning was performed of the abdominal and retroperitoneal organs, with image documentation. COMPARISON: None. FINDINGS: Liver: The liver surface appears micronodular. Diffusely increased hepatic parenchymal echogenicity with coarsened hepatic echotexture. Gallbladder: Cholecystectomy. Biliary ducts: Nondilated. Pancreas: Visualized portions of the pancreas are sonographically normal. Spleen: Spleen is normal in size and homogeneous in echotexture. Kidneys: Few small renal cysts. No shadowing calculus or hydronephrosis. Aorta: Visualized aorta is normal in caliber at less than 3 cm. Iliacs: Proximal common iliac arteries are normal in caliber at less than 2.5 cm. IVC: Intrahepatic inferior vena cava is patent. Miscellaneous: No free abdominal fluid. IMPRESSION: Findings suggestive of cirrhosis. Dictated by: Roverto Tovar M.D. on 02/12/2022 at 10:15 Approved by: Roverto Tovar M.D. on 02/12/2022 at 10:16
== END ==
PROVIDERS: PCP Internal Medicine; Referring Provider Internal Medicine; Visit Provider Internal Medicine
DX: R10.9 Unspecified abdominal pain (principal)
CPT/HCPCS: 76700